=== PATIENT | male | born 1965 | race Hispanic/Latino ===

== ENCOUNTER 2024-10-12 16:01 | Emergency (ER) | payer BC ==
[2024-10-12] VITALS (10 sets, daily range): BP systolic 97–124; BP diastolic 56–72
[~2024-10-12] VITALS: Ht 175.3 cm; Wt 143.0 kg
[2024-10-12 17:09] LABS: BASO% 1.1 % (0-3); EOS% 6.2 % (0-8); HEMOGLOBIN 12.8 g/dl (14.0-18.0); IMMATURE GRANULOCYTES 0.2 % (0.0-5.0); LYMPH% 35.5 % (15-41); MEAN CELL VOLUME 89.2 fL CALC (80.0-100.0); MEAN CORPUSCULAR HGB CONC 33.7 g/dL CAL (32.0-36.0); MONO% 8.2 % (2-13); NEUT# 2.76 thou/uL (1.82-7.42); NEUT% 48.8 % (42-76); RED BLOOD COUNT 4.26 mill/uL (4.70-6.10); RED CELL DISTRI WIDTH 14.2 % (11.5-15.5)
[2024-10-12 17:21] LABS: ALBUMIN 4.3 g/dL (3.2-5.0); BILIRUBIN, TOTAL 0.4 mg/dL (0.2-1.3); TOTAL PROTEIN 7.4 g/dL (6.3-8.2)
[2024-10-12 17:23] LABS: POTASSIUM 4.3 mmol/l (3.5-5.1)
== END 2024-10-12 20:03 | disposition home or self-care (01) | DRG 558 ==
LOC: ED 16:01
PROVIDERS: Nurse Practitioner
DX: M70.51 Other bursitis of knee, right knee (principal); E11.9 Type 2 diabetes mellitus without complications